=== PATIENT | female | born 1980 | race Caucasian/White ===

== ENCOUNTER 2018-08-15 17:38 | Emergency (ER) | payer SELFPAY, OTHER | END 2018-08-16 14:50 | disposition left against medical advice (07) | LOC: E/R 17:38 | DX: Z53.21 Procedure and treatment not carried out due to patient leaving prior to being seen by health care provider (principal) ==

== ENCOUNTER 2018-08-15 17:58 | Outpatient (CLI) | payer OTHER | END 2018-08-15 21:10 | disposition home or self-care (01) | LOC: OBT 17:58 → L-D 18:25 → OBT 21:10 | DX: O98.513 Other viral diseases complicating pregnancy, third trimester (principal); J06.9 Acute upper respiratory infection, unspecified; O36.8130 Decreased fetal movements, third trimester, not applicable or unspecified; O34.219 Maternal care for unspecified type scar from previous cesarean delivery; Z3A.31 31 weeks gestation of pregnancy | CPT/HCPCS: 76818 ==

== ENCOUNTER 2018-08-15 21:16 | Emergency (ER) | payer OTHER | END 2018-08-15 21:53 | disposition home or self-care (01) | LOC: FTE 21:53 | DX: O99.89 Other specified diseases and conditions complicating pregnancy, childbirth and the puerperium (principal); R05 Cough; Z3A.11 11 weeks gestation of pregnancy | CPT/HCPCS: 99283; Z7502 ==

== ENCOUNTER 2018-09-09 13:31 | Outpatient (CLI) | payer OTHER ==
[2018-09-09] MEDS: TERBUTALINE 1 MG/ML INJ SC (14:34)
[2018-09-09 15:07] LABS: RUPTURE FETAL MEMBRANES NEGATIVE (NEGATIVE)
== END 2018-09-09 15:42 | disposition home or self-care (01) ==
LOC: OBT 13:31 → L-D 13:31 → OBT 15:42
DX: O62.9 Abnormality of forces of labor, unspecified (principal); O26.893 Other specified pregnancy related conditions, third trimester; O34.219 Maternal care for unspecified type scar from previous cesarean delivery; O09.523 Supervision of elderly multigravida, third trimester; Z3A.35 35 weeks gestation of pregnancy
CPT/HCPCS: 76818; 84112

== ENCOUNTER 2018-09-19 06:33 | Inpatient (IN) | payer OTHER ==
[2018-09-19] MEDS ORDERED: METHYLERGONOVINE 0.2 MG INJ IM ×3 (07:00→12:00)
[2018-09-19] MEDS ORDERED: PROPOFOL 200 MG INJ (07:00)
[2018-09-19] MEDS ORDERED: CARBOPROST 250 MCG INJ IM ×3 (07:00→12:00)
[2018-09-19] MEDS ORDERED: MISOPROSTOL 200 MCG TAB PR ×3 (07:00→12:00)
[2018-09-19] MEDS ORDERED: OXYTOCIN 30 UNITS/LR 500 ML IV ×3 (07:00→12:00)
[2018-09-19] MEDS ORDERED: OXYTOCIN 30 UNITS/LR 500 ML BAG IV (07:00)
[2018-09-19] MEDS: LACTATED RINGER'S 1,000 ML IV ×4 (07:11→22:51)
[2018-09-19 07:17] LABS: ADD MAN DIFF? NO
[2018-09-19 07:22] LABS: BASOPHILS % 0.4 % (0.0-2.0); EOSINOPHILS # 0.1 10^3/ul (0.0-0.5); EOSINOPHILS % 1.1 % (0.0-7.0); HEMATOCRIT 35.6 % (37.0-47.0); HEMOGLOBIN 11.8 g/dl (12.0-16.0); LYMPHOCYTES # 2.4 10^3/ul (0.8-2.9); LYMPHOCYTES % 30.6 % (15.0-51.0); MEAN CORPUSCULAR HEMOGLOBIN 29.2 pg (29.0-33.0); MEAN CORPUSCULAR HGB CONC 33.1 g/dl (32.0-37.0); MEAN CORPUSCULAR VOLUME 88.1 fl (82.0-101.0); MEAN PLATELET VOLUME 11.6 fl (7.4-10.4); MONOCYTE # 0.7 10^3/ul (0.3-0.9); MONOCYTES % 8.2 % (0.0-11.0); NEUTROPHIL # 4.7 10^3/ul (1.6-7.5); NEUTROPHILS % 59.2 % (39.0-77.0); PLATELET COUNT 214 10^3/UL (140-415); RED BLOOD COUNT 4.04 10^6/ul (4.20-5.40); RED CELL DISTRIBUTION WIDTH 13.8 % (11.5-14.5)
[2018-09-19 07:22] LABS: WHITE BLOOD COUNT 7.9 10^3/ul (4.8-10.8)
[2018-09-19] MEDS ORDERED: HYDROmorphONE 0.5 MG/0.5 ML SYG IV ×2 (07:30)
[2018-09-19] MEDS ORDERED: CEFAZOLIN 2 GM/50 ML (PMX) 50 ML IVPB (07:30)
[2018-09-19] MEDS ORDERED: KETOROLAC 30 MG INJ IV (07:30)
[2018-09-19] MEDS ORDERED: NALOXONE (0.4 MG/ML) INJ IV (07:30)
[2018-09-19] MEDS ORDERED: OXYTOCIN 10 UNIT INJ (07:30)
[2018-09-19] MEDS ORDERED: HYDROmorphONE 1 MG/5 ML IV SYRINGE IV ×3 (07:30)
[2018-09-19] MEDS ORDERED: ONDANSETRON 4 MG INJ IV ×2 (07:30)
[2018-09-19] MEDS ORDERED: FENTAnyl 50 MCG/ML VIAL IV ×2 (07:30)
[2018-09-19] MEDS ORDERED: ZOLPIDEM 5 MG TAB PO (07:30)
[2018-09-19] MEDS ORDERED: morphine SULFATE/PF (10 MG/10 ML) INJ (07:30)
[2018-09-19] MEDS ORDERED: DIPHENHYDRAMINE 50 MG INJ IV ×2 (07:30)
[2018-09-19 07:35] LABS: PROTIME 12.2 Sec (11.9-14.9)
[2018-09-19 07:36] LABS: PARTIAL THROMBOPLASTIN TIME 28.1 Sec (23.0-35.0)
[2018-09-19] MEDS ORDERED: EPINEPHrine 1 MG INJ (07:43)
[2018-09-19] MEDS ORDERED: METOCLOPRAMIDE 10 MG INJ (08:14)
[2018-09-19] MEDS ORDERED: FAMOTIDINE 20 MG INJ (08:15)
[2018-09-19] MEDS ORDERED: MIDAZOLAM 1 MG/ML 2 ML INJ (08:35)
[2018-09-19] MEDS: OXYTOCIN 30 UNITS/LR 500 ML IV ×2 (09:12→13:30)
[2018-09-19] MEDS ORDERED: NA PHOSPHATE/BIPHOS 133 ML ENEMA PR (12:00)
[2018-09-19] MEDS ORDERED: HYDROCODONE/APAP (5/325) TAB PO (12:00)
[2018-09-19] MEDS ORDERED: NACL 0.9% 3 ML SYG IV (12:00)
[2018-09-19] MEDS: LANOLIN HPA 1 PKT TOP (15:32)
[2018-09-19 21:09] LABS: RAPID PLASMA REAGIN NONREACTIVE (NR)
[2018-09-20] MEDS: KETOROLAC 30 MG INJ IV (04:36)
[2018-09-20 05:41] LABS: ADD MAN DIFF? NO
[2018-09-20 05:44] LABS: WHITE BLOOD COUNT 7.9 10^3/ul (4.8-10.8)
[2018-09-20 05:44] LABS: BASOPHILS % 0.4 % (0.0-2.0); EOSINOPHILS % 0.3 % (0.0-7.0); HEMATOCRIT 29.1 % (37.0-47.0); HEMOGLOBIN 9.6 g/dl (12.0-16.0); LYMPHOCYTES # 1.7 10^3/ul (0.8-2.9); LYMPHOCYTES % 21.3 % (15.0-51.0); MEAN CORPUSCULAR HEMOGLOBIN 29.5 pg (29.0-33.0); MEAN CORPUSCULAR VOLUME 89.5 fl (82.0-101.0); MEAN PLATELET VOLUME 11.5 fl (7.4-10.4); MONOCYTE # 0.8 10^3/ul (0.3-0.9); NEUTROPHIL # 5.4 10^3/ul (1.6-7.5); NEUTROPHILS % 67.5 % (39.0-77.0); PLATELET COUNT 157 10^3/UL (140-415); RED BLOOD COUNT 3.25 10^6/ul (4.20-5.40); RED CELL DISTRIBUTION WIDTH 13.5 % (11.5-14.5)
[2018-09-20] MEDS ORDERED: PIPER-TAZO 3.375 GM IV (PMX) 100 ML IVPB (06:00)
[2018-09-20 06:06] LABS: ALANINE AMINOTRANSFERASE 19 IU/L (13-69); ALBUMIN 2.3 g/dl (3.3-4.9); ALBUMIN/GLOBULIN RATIO 0.82; ALKALINE PHOSPHATASE 95 IU/L (42-121); ANION GAP 6 (5-13); ASPARTATE AMINO TRANSFERASE 20 IU/L (15-46); BILIRUBIN,INDIRECT 0.2 mg/dl (0-1.1); BILIRUBIN,TOTAL 0.2 mg/dl (0.2-1.3); BLOOD UREA NITROGEN 5 mg/dl (7-20); CALCIUM 8.2 mg/dl (8.4-10.2); CARBON DIOXIDE 22 mmol/L (21-31); CHLORIDE 107 mmol/L (97-110); CREATININE 0.47 mg/dl (0.44-1.00); Estimated GFR > 60 mL/min (>60); GLUCOSE 80 mg/dl (70-220); POTASSIUM 3.8 mmol/L (3.5-5.1); SODIUM 135 mmol/L (135-144); TOTAL PROTEIN 5.1 g/dl (6.1-8.1)
[2018-09-20] MEDS: PIPER-TAZO 3.375 GM IV (PMX) 100 ML IVPB ×3 (06:33→17:45)
[2018-09-20] MEDS: LACTATED RINGER'S 1,000 ML IV ×3 (07:29→22:51)
[2018-09-20] MEDS: ACETAMINOPHEN 325 MG TAB PO (08:22)
[2018-09-20] MEDS: IBUPROFEN 800 MG TAB PO ×2 (13:19→22:20)
[2018-09-21] MEDS: PIPER-TAZO 3.375 GM IV (PMX) 100 ML IVPB ×2 (00:26→06:29)
[2018-09-21] MEDS: IBUPROFEN 800 MG TAB PO ×3 (06:31→22:30)
[2018-09-21] MEDS: LACTATED RINGER'S 1,000 ML IV (06:51)
[2018-09-22] MEDS: IBUPROFEN 800 MG TAB PO (06:47)
[2018-09-22] MEDS: DIPHTH/TET/ACEL PERTUSS (ADULT) 0.5 ML VIAL IM* (08:13)
[2018-09-22] MEDS: MEASLES,MUMPS,RUBELLA VACCINE INJ SC* (08:14)
== END 2018-09-22 14:05 | disposition home or self-care (01) | DRG 785 ==
LOC: L-D 06:33 → PP1 11:40
PROVIDERS: Obstetrics & Gynecology
PROC: 10D00Z1 Extraction of Products of Conception, Low, Open Approach (ICD-10-PCS; principal; 2018-09-19 07:30)
PROC: 0UB70ZZ Excision of Bilateral Fallopian Tubes, Open Approach (ICD-10-PCS; 2018-09-19 07:30)
DX: O13.3 Gestational [pregnancy-induced] hypertension without significant proteinuria, third trimester (principal); O34.219 Maternal care for unspecified type scar from previous cesarean delivery; Z37.0 Single live birth; Z30.2 Encounter for sterilization; Z3A.36 36 weeks gestation of pregnancy
CPT/HCPCS: 80053; 83605; 85025; 85610; 85730; 86592; 86850; 86900; 86901; 87040; 87086; 88302; 99464